=== PATIENT | female | born 1985 | race Caucasian/White ===

== ENCOUNTER 2016-12-06 14:21 | Emergency (ER) | payer OTHER ==
[~2016-12-06 14:21] MED LIST: PRED20TA PO
[2016-12-06 15:10] VITALS: BP 131/83
[2016-12-06] MEDS ORDERED: HYDR-971 PO (15:29)
[2016-12-06] MEDS ORDERED: ACYC800T PO (15:29)
[2016-12-06] MEDS ORDERED: GABA-586 PO (15:29)
--- NOTE | 2016-12-06 15:31 | PHYS DOC ---
Past Medical History Past Medical History: Sciatica Additional Past Medical Histor: SCIATIC NERVE LEFT Past Surgical History: Tubal ligation Alcohol Use: Occasionally Drug Use: None Adult General Chief Complaint Chief Complaint: ITCHING HPI HPI Patient is a 31 year old female presents to the emergency department with a history of rash on the left outer arm. Patient states it has developed on and off for the last year. She states this one developed within the last 2 days. Area appear red with blister type areas. Patient states she had burn itching type pain to the area prior to the rash. Patient has had chicken pox when she was younger. Denies fever, chills, nausea and vomiting. Review of Systems Review of Systems Constitutional: Denies fever or chills [] Eyes: Denies change in visual acuity, redness, or eye pain [] HENT: Denies nasal congestion or sore throat [] Respiratory: Denies cough or shortness of breath [] Cardiovascular: No additional information not addressed in HPI [] GI: Denies abdominal pain, nausea, vomiting, bloody stools or diarrhea [] : Denies dysuria or hematuria [] Musculoskeletal: Denies back pain or joint pain [] Integument: C/o rash to the left outer arm Neurologic: Denies headache, focal weakness or sensory changes [] Endocrine: Denies polyuria or polydipsia [] Allergies Allergies Allergies Coded Allergies Type Severity Reaction Last Updated Verified No Known Drug Allergies 12/16/14 No Physical Exam Physical Exam Constitutional: Well developed, well nourished, no acute distress, non-toxic appearance. [] HENT: Normocephalic, atraumatic, bilateral external ears normal, oropharynx moist, no oral exudates, nose normal. [] Eyes: PERRLA, EOMI, conjunctiva normal, no discharge. [] Neck: Normal range of motion, no tenderness, supple, no stridor. [] Cardiovascular:Heart rate regular rhythm, no murmur [] Lungs & Thorax: Bilateral breath sounds clear to auscultation [] Skin: Warm, dry, no erythema. Patient with red, pustule area noted to the left outer arm no drainage noted. Back: No tenderness Extremities: No tenderness, no cyanosis, no clubbing, ROM intact, no edema. [] Neurologic: Alert and oriented X 3, normal motor function, normal sensory function, no focal deficits noted. [] Psychologic: Affect normal, judgement normal, mood normal. [] Current Patient Data Vital Signs Vital Signs Date Time Temp Pulse Resp B/P Pulse Ox O2 Delivery O2 Flow Rate FiO2 12/06/16 15:10 98.6 92 14 98 Room Air 98.6 EKG EKG [] Radiology/Procedures Radiology/Procedures [] Course & Med Decision Making Course & Med Decision Making Pertinent Labs and Imaging studies reviewed. (See chart for details) Patient will be provided with hydrocodone, gabapentin and acyclovir. Patient states she is concerned as she does not have insurance at this time and is not sure she can afford her medication. Patient was provided with signs and symptoms to return to emergency department. Patient was instructed to keep the area clean dry and cool. Patient will be discharged home in stable condition. Recommended followup with primary care provider in 5-7 days. Patient agrees with discharge instructions, treatment regimen and followup recommendations. Patient was instructed [place] will cause drowsiness do not take if you need to be alert and oriented [] Dragon Disclaimer Dragon Disclaimer This electronic medical record was generated, in whole or in part, using a voice recognition dictation system. Departure Departure Impression: Primary Impression: Shingles outbreak Disposition: HOME, SELF-CARE Condition: STABLE Referrals: NO PCP (PCP) Patient Instructions: Shingles, [id number] Additional Instructions: You have been evaluated for a rash. This rash appears to be shingles Activity as tolerated Medication as prescribed [place] will cause drowsiness do not take if you need to be alert and oriented Benadryl 25 mg every 4-6 hours may also help with irritation and itching. This medication may also cause drowsiness do not take if you need to be alert and oriented. Keep the area clean and dry and cool Avoid being around females Followup with primary care provider in 5-7 days Return to emergency department as needed for signs and symptoms that become worse. Scripts Acyclovir 800 Mg Tablet1 Tab PO 5XDAY #50 TAB Prov:DEENA HDZ [employer] 12/06/16 Gabapentin 300 Mg [id number] Mg PO TID #20 CAP Prov:DEENA HDZ [employer] 12/06/16 Hydrocodone/Apap 5-325 ([place] 5-325 Tablet)1 Each Tablet1 Tab PO PRN Q6HRS PRN PAIN #20 TAB Prov:DEENA HDZ NP 12/06/16 DEENA HDZ NP Dec 06, 2016 15:31
== END 2016-12-06 15:46 | disposition home or self-care (01) ==
LOC: ER 14:21
DX: B02.9 Zoster without complications (principal); Z98.51 Tubal ligation status
CPT/HCPCS: 99283

== ENCOUNTER 2017-05-08 07:17 | Emergency (ER) | payer OTHER ==
[~2017-05-08] VITALS: Ht 162.6 cm; Wt 87.1 kg
[~2017-05-08 07:17] MED LIST changes: +ACYC800T PO; +GABA-586 PO; +HYDR-971 PO
[2017-05-08 07:49] VITALS: BP 119/65
[2017-05-08] MEDS ORDERED: ACYC800T PO (07:58)
[2017-05-08] MEDS ORDERED: HYDR-2758 PO (07:58)
[2017-05-08] MEDS ORDERED: PRED50TA PO (07:58)
--- NOTE | 2017-05-08 07:58 | PHYS DOC ---
Past Medical History Past Medical History: Sciatica Additional Past Medical Histor: SCIATIC NERVE LEFT, history of herpes zoster shingles Past Surgical History: Tubal ligation Smoking: Cigarettes, Greater than 1 pack/day Alcohol Use: Occasionally Drug Use: None Adult General Chief Complaint Chief Complaint: SKIN RASH/ABSCESS [facility] This is a pleasant 31-year-old female with a history of shingles in the past and prior tubal ligation who presents with a rash that she noted on the inside of her bottom yesterday while showering it is tender to palpation although she cannot see it there is concomitant pain within the inguinal crease along the lymph nodes that are now mildly irritated within the right leg. She denies any fever, chills, flulike symptoms. She denies any vaginal discharge or bleeding she denies any joint pain, denies any tick bites denies any other high risk rash findings. She has not taken any recent antibiotics. She is non-IV drug user area Differential diagnosis of rash meningitis, herpes zoster, shingles, gonorrhea, sex or transmitted disease, Rawson spotted fever, ITP TTP, TEN, roger, necrotizing fasciitis, roseola, measles, mumps, and HSP. Review of Systems Review of Systems Constitutional: Denies fever or chills [] Eyes: Denies change in visual acuity, redness, or eye pain [] HENT: Denies nasal congestion or sore throat [] Respiratory: Denies cough or shortness of breath [] Cardiovascular: No additional information not addressed in HPI [] GI: Denies abdominal pain, nausea, vomiting, bloody stools or diarrhea [] : Denies dysuria or hematuria [] Musculoskeletal: Denies back pain or joint pain [] Integument: She complains of only a skin rash Neurologic: Denies headache, focal weakness or sensory changes [] Endocrine: Denies polyuria or polydipsia [] Allergies Allergies Allergies Coded Allergies Type Severity Reaction Last Updated Verified No Known Drug Allergies 12/16/14 No Physical Exam Physical Exam Constitutional: Well developed, well nourished, no acute distress, non-toxic appearance. [] HENT: Normocephalic, atraumatic, bilateral external ears normal, oropharynx moist, no oral exudates, nose normal. [] Cardiovascular:Heart rate regular rhythm, no murmur [] Lungs & Thorax: Bilateral breath sounds clear to auscultation [] Skin: Warm, dry, no erythema, there is a slight vesicular rash almost dermatomal along the inside of the right gluteal buttock. It is only a localized area without cellulitis or abscess. Extremities: No tenderness, no cyanosis, no clubbing, ROM intact, no edema. [] Slight reactive lymphadenopathy noted along the right inguinal crease. Neurologic: Alert and oriented X 3, normal motor function, normal sensory function, no focal deficits noted. [] Psychologic: Affect normal, judgement normal, mood normal. [] EKG EKG [] Radiology/Procedures Radiology/Procedures [] Course & Med Decision Making Course & Med Decision Making Pertinent Labs and Imaging studies reviewed. (See chart for details) Nursing notes and vital signs upon arrival and history of prior zoster. Patient has had a tubal ligation angry placed on appropriate medications to support what I believe to be a herpes zoster exacerbation. She is having a STD-like herpes, HIV, gonorrhea, chlamydia, syphilis, Haemophilus ducri, cellulitis or abscess. She'll be treated with a course of acyclovir, prednisone, and pain medications and follow-up with her PCP. [] Dragon Disclaimer Dragon Disclaimer This electronic medical record was generated, in whole or in part, using a voice recognition dictation system. Departure Departure Impression: Primary Impression: Shingles outbreak Additional Impression: Reactive lymphadenopathy Disposition: 01 HOME, SELF-CARE Condition: STABLE Referrals: NO PCP (PCP) Patient Instructions: Shingles Additional Instructions: Please return here for any new or increasing symptoms, fever greater than 102.2 or if you have any questions or concerns. I would advise a follow-up your primary care doctor in the next 12-24 hours for repeat evaluation. Symptoms have spread. Scripts Prednisone (PREDNISONE) 50 Mg Tablet 1 TAB PO DAILY, #5 TAB Prov: GURWINDER CARRIZALES MD 05/08/17 Acyclovir (ACYCLOVIR) 800 Mg Tablet 1 TAB PO 5XDAY for 10 Days, #50 TAB Prov: GURWINDER CARRIZALES MD 05/08/17 Hydrocodone Bit/Acetaminophen (HYDROCODONE-APAP 5-325 ) 1 Each Tablet 1-2 TAB PO PRN Q6HRS Y for PAIN for 5 Days, #10 TAB 0 Refills Prov: GURWINDER CARRIZALES MD 05/08/17 Problem Qualifiers GURWINDER CARRIZALES MD May 08, 2017 07:58
== END 2017-05-08 08:03 | disposition home or self-care (01) ==
LOC: ER 07:17
DX: B02.9 Zoster without complications (principal); R59.1 Generalized enlarged lymph nodes; F17.210 Nicotine dependence, cigarettes, uncomplicated; Z98.51 Tubal ligation status
CPT/HCPCS: 99283

== ENCOUNTER 2017-07-10 07:43 | Emergency (ER) | payer OTHER ==
[~2017-07-10 07:43] MED LIST changes: +HYDR-2758 PO; +PRED50TA PO
--- NOTE | 2017-07-10 08:23 | PHYS DOC ---
Past Medical History Past Medical History: No Pertinent History Additional Past Medical Histor: SCIATIC NERVE LEFT, history of herpes zoster shingles Past Surgical History: Tubal ligation Alcohol Use: None Drug Use: None Adult General Chief Complaint Chief Complaint: DIZZY/LIGHT HEADED HPI HPI Patient is a 32 year old female who presents with dizziness that started this morning upon awakening. He states that it feels as if the room is spinning when she stands up. She also feels weak. She states that yesterday she had nausea with 2 episodes of vomiting and diarrhea. She states that she has had 1 loose stool this morning. She denies fever or injury. She has history of tubal ligation. Review of Systems Review of Systems Constitutional: Denies fever or chills [] Eyes: Denies change in visual acuity, redness, or eye pain [] HENT: Denies nasal congestion or sore throat [] Respiratory: Denies cough or shortness of breath [] Cardiovascular: No additional information not addressed in HPI [] GI: See HPI : Denies dysuria or hematuria [] Musculoskeletal: Denies back pain or joint pain [] Integument: Denies rash or skin lesions [] Neurologic:See HPI Endocrine: Denies polyuria or polydipsia [] Current Medications Current Medications Current Medications Medications (Trade) Dose Ordered Sig/Abby Start Time Stop Time Status Last Admin Dose Admin Ceftriaxone Sodium 50 ml @ 100 mls/hr 1X ONCE 07/10/17 12:45 07/10/17 13:14 DC 07/10/17 12:57 100 MLS/HR Info (Do NOT chart on this entry -- for MONITORING) 1 each PRN DAILY PRN 07/10/17 13:45 07/10/17 15:15 DC Iohexol (Omnipaque 300 Mg/ml) 75 ml 1X ONCE 07/10/17 13:45 07/10/17 13:46 DC 07/10/17 13:48 75 ML Sodium Chloride 1,000 ml @ 1,000 mls/hr 1X ONCE 07/10/17 10:30 07/10/17 11:29 DC 07/10/17 10:31 1,000 MLS/HR Allergies Allergies Allergies Coded Allergies Type Severity Reaction Last Updated Verified No Known Drug Allergies 12/16/14 No Physical Exam Physical Exam Constitutional: Well developed, well nourished, moderate distress, flushed ill appearance. [] HENT: Normocephalic, atraumatic, bilateral external ears normal, oropharynx dry , no oral exudates, nose normal. [] Eyes: PERRLA, EOMI, conjunctiva normal, no discharge. [] Neck: Normal range of motion, no tenderness, supple, no stridor. [] Cardiovascular: Sinus Bradycardia[] Lungs & Thorax: Bilateral breath sounds clear to auscultation [] Abdomen: Bowel sounds normal, soft, no tenderness, no masses, no pulsatile masses. [] Skin: Warm, dry, no erythema, no rash. [] Back: No tenderness, no CVA tenderness. [] Extremities: No tenderness, no cyanosis, no clubbing, ROM intact, no edema. [] Neurologic: Alert and oriented X 3, normal motor function, normal sensory function, no focal deficits noted. [] Psychologic: Affect normal, judgement normal, mood normal. [] Current Patient Data Vital Signs Vital Signs Date Time Temp Pulse Resp B/P (MAP) Pulse Ox O2 Delivery O2 Flow Rate FiO2 07/10/17 14:00 50 20 126/71 (89) 100 07/10/17 13:37 Room Air 07/10/17 08:08 97.6 97.6 Lab Values Laboratory Tests Test 07/10/17 08:30 07/10/17 11:34 White Blood Count 7.0 x10^3/uL (4.0-11.0) Red Blood Count 4.30 x10^6/uL (3.50-5.40) Hemoglobin 13.5 g/dL (12.0-15.5) Hematocrit 39.3 % (36.0-47.0) Mean Corpuscular Volume 91 fL (79-100) Mean Corpuscular Hemoglobin 31 pg (25-35) Mean Corpuscular Hemoglobin Concent 34 g/dL (31-37) Red Cell Distribution Width 13.5 % (11.5-14.5) Platelet Count 147 x10^3/uL (140-400) Neutrophils (%) (Auto) 58 % (31-73) Lymphocytes (%) (Auto) 34 % (24-48) Monocytes (%) (Auto) 5 % (0-9) Eosinophils (%) (Auto) 3 % (0-3) Basophils (%) (Auto) 0 % (0-3) Neutrophils # (Auto) 4.1 x10^3uL (1.8-7.7) Lymphocytes # (Auto) 2.3 x10^3/uL (1.0-4.8) Monocytes # (Auto) 0.4 x10^3/uL (0.0-1.1) Eosinophils # (Auto) 0.2 x10^3/uL (0.0-0.7) Basophils # (Auto) 0.0 x10^3/uL (0.0-0.2) Sodium Level 142 mmol/L (136-145) Potassium Level 3.7 mmol/L (3.5-5.1) Chloride Level 106 mmol/L (98-107) Carbon Dioxide Level 28 mmol/L (21-32) Anion Gap 8 (6-14) Blood Urea Nitrogen 17 mg/dL (7-20) Creatinine 0.7 mg/dL (0.6-1.0) Estimated GFR (Cockcroft-Gault) 96.4 BUN/Creatinine Ratio 24 (6-20) H Glucose Level 102 mg/dL (70-99) H Calcium Level 8.8 mg/dL (8.5-10.1) Total Bilirubin 0.4 mg/dL (0.2-1.0) Aspartate Amino Transferase (AST) 18 U/L (15-37) Alanine Aminotransferase (ALT) 34 U/L (14-59) Alkaline Phosphatase 99 U/L (46-116) Total Protein 7.4 g/dL (6.4-8.2) Albumin 3.7 g/dL (3.4-5.0) Albumin/Globulin Ratio 1.0 (1.0-1.7) Urine Collection Type Void Urine Color Yellow Urine Clarity Cloudy Urine pH 6.5 Urine Specific [place] 1.020 Urine Protein Negative mg/dL (NEG-TRACE) Urine Glucose (UA) Negative mg/dL (NEG) Urine Ketones (Stick) Negative mg/dL (NEG) Urine Blood Trace (NEG) Urine Nitrite Positive (NEG) Urine Bilirubin Negative (NEG) Urine Urobilinogen Dipstick 1.0 mg/dL (0.2 mg/dL) Urine Leukocyte Esterase Large (NEG) Urine RBC 3-5 /HPF (0-2) Urine WBC >40 /HPF (0-4) Urine Squamous Epithelial Cells Few /LPF Urine Amorphous Sediment Present /HPF Urine Bacteria Moderate /HPF (0-FEW) Laboratory Tests 07/10/17 08:30 Laboratory Tests 07/10/17 08:30 EKG EKG [] Radiology/Procedures Radiology/Procedures []PATIENT: ALVINA DIMAS ACCOUNT: [id number] : 1985 LOCATION: ER AGE: 32 SEX: F EXAM STATUS: REG ER ORD. PHYSICIAN: TIARA SHEARER APRN REASON: dizzy PROCEDURE: CT HEAD WO CONTRAST CT head without contrast 07/10/2017 at 1043 hours Indication: Dizziness Comparison: None available Technique: Multiple axial noncontrast CT images of the head were obtained from the skull base through the vertex. Findings: The ventricles, sulci and basal cisterns are within normal limits. Garcia-white matter differentiation is normal. There is no acute intracranial hemorrhage. There is no mass, mass effect or midline shift. Posterior fossa is within normal limits. Sellar and suprasellar cistern appear normal. Orbits are normal in appearance. Mild mucosal thickening is noted in the left maxillary sinus with air-fluid level. Mastoid air cells are well aerated. Scalp and calvaria are normal. Impression: There is no acute intracranial hemorrhage. Mild mucosal thickening is noted in the left maxillary sinus with air-fluid level. Recommend correlation with signs and symptoms of sinusitis. PQRS Compliance Statement: One or more of the following individualized dose reduction techniques were utilized for this examination: 1. Automated exposure control 2. Adjustment of the mA and/or kV according to patient size 3. Use of iterative reconstruction technique DICTATED and SIGNED BY: JOSE REHMAN MD DATE: 07/10/17 1056 CC: TIARA SHEARER APRN; NO PCP; NON,STAFF ~ PATIENT: ALVINA DIMAS ACCOUNT: [id number] : 1985 LOCATION: ER AGE: 32 SEX: F EXAM STATUS: REG ER ORD. PHYSICIAN: TIARA SHEARER APRN REASON: dizzyness, bradycardia PROCEDURE: CHEST PA & LATERAL Chest radiograph 07/10/2017 11:33 AM Indication: Dizziness, bradycardia Comparison: None available Technique: PA and lateral views of the chest are provided. Findings: Cardiomediastinal silhouette is within normal limits. No pleural effusions, pulmonary vascular congestion or pneumothorax. The lungs are clear. Osseous structures are normal. Impression: No acute cardiopulmonary process. DICTATED and SIGNED BY: JOSE REHMAN MD DATE: 07/10/17 1016 CC: TIARA SHEARER APRN; NO PCP; NON,STAFF ~ Impressions: PATIENT: ALVINA DIMAS ACCOUNT: [id number] : 1985 LOCATION: ER AGE: 32 SEX: F EXAM STATUS: REG ER ORD. PHYSICIAN: TIARA SHEARER APRN REASON: possible pyelonephritis PROCEDURE: CT ABD PELV W/ IV CONTRST ONLY CT abdomen/pelvis with contrast 07/10/2017 at 1348 hours Indication: Pyelonephritis Comparison: None available Technique: Multiple axial CT images of the abdomen and pelvis were obtained after the administration of 75 mL of Omnipaque 300. Coronal and sagittal reformats are provided. Findings: Lung bases are clear. Heart size is within normal limits. There is hypoattenuation of the hepatic parenchyma suggestive of diffuse hepatic steatosis. The spleen, bilateral adrenal glands, pancreas and gallbladder are within normal limits. The abdominal aorta is normal in course and caliber. There are no pathologically enlarged lymph nodes in the abdomen or pelvis. There is no free air or free fluid. The kidneys enhance symmetrically. No suspicious renal masses. There is no hydronephrosis. No calculi are identified in the kidneys, ureters or urinary bladder. Urinary bladder is within normal limits. Metallic clip is identified in the left adnexa. Otherwise uterus and right adnexa are within normal limits. Small and large bowel are normal in caliber. No evidence for bowel obstruction. Normal appendix visualized. No pericolonic inflammatory changes are identified. Metallic density is identified along the ventral portion of the transverse colon. No suspicious osseous lesions are identified. There is mild extra convex curvature of the lumbar spine. Impression: 1. Kidneys enhance symmetrically. No evidence for hydronephrosis or obstructive uropathy. 2. Surgical clip is identified in the left adnexa, likely from tubal ligation. An additional clip may have migrated into the ventral upper abdomen. PQRS Compliance Statement: One or more of the following individualized dose reduction techniques were utilized for this examination: 1. Automated exposure control 2. Adjustment of the mA and/or kV according to patient size 3. Use of iterative reconstruction technique DICTATED and SIGNED BY: JOSE REHMAN MD DATE: 07/10/17 1404 CC: TIARA SHEARER APRN; NO PCP; NON,STAFF ~ Course & Med Decision Making Course & Med Decision Making Pertinent Labs and Imaging studies reviewed. (See chart for details) 1. Urinary Tract Infection 2. Bradycardia 3. Dizziness 4. Weakness After an extensive workup the patient was scheduled to be admitted for further IV antibiotic therapy and further evaluation of her bradycardia and dizziness. The patient was given 3 L of normal saline in the emergency department as well as a gram of Rocephin. Upon discussing her admission the patient became very tearful and refused to be admitted. She did decide to leave AGAINST MEDICAL ADVICE. The patient was given a prescription for Bactrim DS to further treat her large urinary tract infection. The risks of her leaving [facility] were discussed with her and she still decided to go forward with that method of treatment. She has been instructed that she is welcome to return to the emergency department at any time. She is to follow-up with a primary care provider for further evaluation and treatment. Dragon Disclaimer Dragon Disclaimer This electronic medical record was generated, in whole or in part, using a voice recognition dictation system. Departure Departure Referrals: NO PCP (PCP) Scripts Sulfamethoxazole/Trimethoprim (BACTRIM DS TABLET) 1 Each Tablet 1 TAB PO BID, #20 TAB Prov: TIARA SHEARER APRN 07/10/17 TIARA SHEARER APRN Jul 10, 2017 08:23
[2017-07-10 08:43] LABS: BASO % 0 % (0-3); EOS % 3 % (0-3); HEMATOCRIT 39.3 % (36.0-47.0); HEMOGLOBIN 13.5 g/dL (12.0-15.5); LYMPH # 2.3 x10^3/uL (1.0-4.8); LYMPH % 34 % (24-48); MEAN CORPUSCULAR HEMOGLOBIN 31 pg (25-35); MEAN CORPUSCULAR HGB CONC 34 g/dL (31-37); MEAN CORPUSCULAR VOLUME 91 fL (79-100); MONO % 5 % (0-9); NEUT % 58 % (31-73); PLATELET COUNT 147 x10^3/uL (140-400); RED CELL DISTRIBUTION WIDTH 13.5 % (11.5-14.5)
[2017-07-10] MEDS ORDERED: IV NORMAL SALINE 1000ML BAG 1,000 ML IV ONE ×3 (08:45→10:30)
--- NOTE | 2017-07-10 09:10 | EKG ---
[facility] [address] [place] [address] Test Date: 2017-07-10 Test Time: 08:19:04 Pat Name: ALVINA DIMAS Department: Room: Gender: F [employer]: : 1985 Requested By: TIARA SHEARER Order Number: [id number] Reading MD: Feliciano Mccallum Measurements Intervals [place] Rate: 57 P: 39 WV: 174 QRS: 33 QRSD: 78 T: 13 QT: 402 QTc: 394 Interpretive Statements SINUS RHYTHM Electronically Signed On 07-11-2017 13:17:18 CDT by Feliciano Mccallum
[2017-07-10 09:12] LABS: CALCIUM 8.8 mg/dL (8.5-10.1); CREATININE 0.7 mg/dL (0.6-1.0); GFR 96.4; POTASSIUM 3.7 mmol/L (3.5-5.1)
[2017-07-10 09:18] LABS: ALBUMIN 3.7 g/dL (3.4-5.0); TOTAL BILIRUBIN 0.4 mg/dL (0.2-1.0); TOTAL PROTEIN 7.4 g/dL (6.4-8.2)
--- NOTE | 2017-07-10 10:19 | RAD ---
Chest radiograph 07/10/2017 11:33 AM Indication: Dizziness, bradycardia Comparison: None available Technique: PA and lateral views of the chest are provided. Findings: Cardiomediastinal silhouette is within normal limits. No pleural effusions, pulmonary vascular congestion or pneumothorax. The lungs are clear. Osseous structures are normal. Impression: No acute cardiopulmonary process.
--- NOTE | 2017-07-10 11:00 | RAD ---
CT head without contrast 07/10/2017 at 1043 hours Indication: Dizziness Comparison: None available Technique: Multiple axial noncontrast CT images of the head were obtained from the skull base through the vertex. Findings: The ventricles, sulci and basal cisterns are within normal limits. Garcia-white matter differentiation is normal. There is no acute intracranial hemorrhage. There is no mass, mass effect or midline shift. Posterior fossa is within normal limits. Sellar and suprasellar cistern appear normal. Orbits are normal in appearance. Mild mucosal thickening is noted in the left maxillary sinus with air-fluid level. Mastoid air cells are well aerated. Scalp and calvaria are normal. Impression: There is no acute intracranial hemorrhage. Mild mucosal thickening is noted in the left maxillary sinus with air-fluid level. Recommend correlation with signs and symptoms of sinusitis. PQRS Compliance Statement: One or more of the following individualized dose reduction techniques were utilized for this examination: 1. Automated exposure control 2. Adjustment of the mA and/or kV according to patient size 3. Use of iterative reconstruction technique
[2017-07-10 11:44] LABS: BILIRUBIN,URINE NEGATIVE (NEG); GLUCOSE,URINE NEGATIVE (NEG); NITRITE,URINE POSITIVE (NEG); PH,URINE 6.5; PROTEIN,URINE NEGATIVE (NEG-TRACE)
[2017-07-10 11:57] LABS: BACTERIA,URINE MODERATE /HPF (0-FEW); SQUAMOUS EPITHELIAL CELL,UR FEW /LPF; WBC,URINE >40 /HPF (0-4)
[2017-07-10] MEDS ORDERED: IOHEXOL 300 MG/ML 75 ML VIAL IV ONE (13:45)
[2017-07-10] MEDS ORDERED: CONTRAST GIVEN MC PRN (13:45)
[2017-07-10 14:00] VITALS: BP 126/71
--- NOTE | 2017-07-10 14:11 | RAD ---
CT abdomen/pelvis with contrast 07/10/2017 at 1348 hours Indication: Pyelonephritis Comparison: None available Technique: Multiple axial CT images of the abdomen and pelvis were obtained after the administration of 75 mL of Omnipaque 300. Coronal and sagittal reformats are provided. Findings: Lung bases are clear. Heart size is within normal limits. There is hypoattenuation of the hepatic parenchyma suggestive of diffuse hepatic steatosis. The spleen, bilateral adrenal glands, pancreas and gallbladder are within normal limits. The abdominal aorta is normal in course and caliber. There are no pathologically enlarged lymph nodes in the abdomen or pelvis. There is no free air or free fluid. The kidneys enhance symmetrically. No suspicious renal masses. There is no hydronephrosis. No calculi are identified in the kidneys, ureters or urinary bladder. Urinary bladder is within normal limits. Metallic clip is identified in the left adnexa. Otherwise uterus and right adnexa are within normal limits. Small and large bowel are normal in caliber. No evidence for bowel obstruction. Normal appendix visualized. No pericolonic inflammatory changes are identified. Metallic density is identified along the ventral portion of the transverse colon. No suspicious osseous lesions are identified. There is mild extra convex curvature of the lumbar spine. Impression: 1. Kidneys enhance symmetrically. No evidence for hydronephrosis or obstructive uropathy. 2. Surgical clip is identified in the left adnexa, likely from tubal ligation. An additional clip may have migrated into the ventral upper abdomen. PQRS Compliance Statement: One or more of the following individualized dose reduction techniques were utilized for this examination: 1. Automated exposure control 2. Adjustment of the mA and/or kV according to patient size 3. Use of iterative reconstruction technique
[2017-07-10] MEDS ORDERED: SULF1TAB24 PO (14:41)
== END 2017-07-10 14:42 | disposition left against medical advice (07) ==
LOC: ER 07:43 → 4 NORTH 14:10 → UNDOADMIN 14:10 → ER 14:42
DX: R42 Dizziness and giddiness (principal); N39.0 Urinary tract infection, site not specified; R00.1 Bradycardia, unspecified; R53.1 Weakness; Z98.51 Tubal ligation status
CPT/HCPCS: 36415; 70450; 71020; 74177; 80053; 81001; 85025; 87086; 93005; 96361; 96365; 99285; J0690; J7030; Q9967

== ENCOUNTER 2017-09-27 18:48 | Emergency (ER) | payer OTHER ==
[~2017-09-27] VITALS: Ht 162.6 cm; Wt 85.7 kg
[~2017-09-27 18:48] MED LIST changes: +SULF1TAB24 PO
[2017-09-27 18:52] VITALS: BP 117/59
--- NOTE | 2017-09-27 19:06 | PHYS DOC ---
Past Medical History Past Medical History: Other Additional Past Medical Histor: SCIATIC NERVE LEFT, history of herpes zoster shingles Past Surgical History: Tubal ligation Alcohol Use: Rarely Drug Use: None Adult General Chief Complaint Chief Complaint: ABSCESS HPI HPI Patient is a 32 year old female who presents with an abscess on the right buttock for 2 weeks. Patient denies any fever or drainage from the area. Review of Systems Review of Systems Constitutional: Denies fever or chills [] GI: Denies abdominal pain, nausea, vomiting, bloody stools or diarrhea [] : Denies dysuria or hematuria [] Musculoskeletal: Denies back pain or joint pain [] Integument: an abscess on the right buttock Neurologic: Denies headache, focal weakness or sensory changes [] All other systems were reviewed and found to be within normal limits, except as documented in this note. Allergies Allergies Allergies Coded Allergies Type Severity Reaction Last Updated Verified No Known Drug Allergies 12/16/14 No Physical Exam Physical Exam Constitutional: Well developed, well nourished, no acute distress, non-toxic appearance. [] Abdomen: Bowel sounds normal, soft, no tenderness, no masses, no pulsatile masses. [] Skin: Warm, dry, and right low buttock with none indurated area approximately 2 x 1 cm with an open center. The area is erythematous warm and tender to touch. This no fluctuance to the area. Back: No tenderness, no CVA tenderness. [] Extremities: No tenderness, no cyanosis, no clubbing, ROM intact, no edema. [] Neurologic: Alert and oriented X 3, normal motor function, normal sensory function, no focal deficits noted. [] Psychologic: Affect normal, judgement normal, mood normal. [] Current Patient Data Vital Signs Vital Signs Date Time Temp Pulse Resp B/P (MAP) Pulse Ox O2 Delivery O2 Flow Rate FiO2 09/27/17 18:52 97.9 78 18 97 Room Air 97.9 EKG EKG [] Radiology/Procedures Radiology/Procedures [] Course & Med Decision Making Course & Med Decision Making Pertinent Labs and Imaging studies reviewed. (See chart for details) Patient has an abscess with cellulitis to the right buttock that is not ready to be drained. Discharged with Bactrim and Bactroban ointment. Warm compresses recommended to the area. Provided return precautions and discharged in stable condition. Tetanus updated. Dragon Disclaimer Piper Disclaimer This electronic medical record was generated, in whole or in part, using a voice recognition dictation system. Departure Departure Impression: Primary Impression: Abscess of cellulitis of buttock Disposition: 01 HOME, SELF-CARE Condition: STABLE Referrals: UNKNOWN PCP NAME (PCP) follow up with your doctor in one week Patient Instructions: Abscess Additional Instructions: You were seen with an abscess with cellulitis of the right buttock. Keep the area clean and dry. Apply warm compresses to the area twice a day. Use the prescribed medications as ordered. Your tetanus was updated in the ED. Follow- up with your doctor in 1-2 weeks. Come back to the ED at any point symptoms worsen. Scripts Tramadol Hcl (ULTRAM) 50 Mg Tablet 1 TAB PO Q6HRS, #30 TAB Prov: DENG HALE APRN 09/27/17 Sulfamethoxazole/Trimethoprim (BACTRIM 400-80 MG TABLET) 1 Each Tablet 1 TAB PO BID, #20 TAB Prov: DENG HALE APRN 09/27/17 Mupirocin Calcium (BACTROBAN CREAM) 15 Gm Cream..g. 1 SHANTEL TP TID, #30 GM Prov: DENG HALE APRN 09/27/17 DENG HALE APRN Sep 27, 2017 19:06
[2017-09-27] MEDS ORDERED: SULF1TAB23 PO (19:11)
[2017-09-27] MEDS ORDERED: MUPI15CR TP (19:11)
[2017-09-27] MEDS ORDERED: TRAM-48 PO (19:12)
[2017-09-27] MEDS ORDERED: DIPHTH,PERTUSS(ACELL),TET TOX 0.5 ML DISP.SYRIN. VAX IM ONE (19:15)
== END 2017-09-27 19:21 | disposition home or self-care (01) ==
LOC: ER 18:48
DX: L03.317 Cellulitis of buttock (principal)
CPT/HCPCS: 90471; 90715; 99283-25

== ENCOUNTER 2017-11-21 22:14 | Emergency (ER) | payer OTHER ==
[2017-11-21] MEDS: DEXAMETHASONE SOD PHOS 20 MG/5 ML VIAL. IM ×2 (23:40)
[2017-11-21] MEDS: KETOROLAC 60 MG/2 ML INJ. IM ×2 (23:40)
== END 2017-11-21 23:49 | disposition home or self-care (01) ==
LOC: ER 22:14
DX: M54.42 Lumbago with sciatica, left side (principal); Z98.51 Tubal ligation status
CPT/HCPCS: 96372; 99284-25; J1100; J1885

== ENCOUNTER 2017-11-23 07:45 | Emergency (ER) | payer OTHER ==
[2017-11-23] MEDS: HYDROcodone/APAP 5/325MG 1 TAB TABLET PO ×2 (08:12)
== END 2017-11-23 08:15 | disposition home or self-care (01) ==
LOC: ER 07:45
DX: M54.30 Sciatica, unspecified side (principal)
CPT/HCPCS: 99283

== ENCOUNTER 2017-12-15 15:46 | Emergency (ER) | payer OTHER | END 2017-12-15 16:44 | disposition home or self-care (01) | LOC: ER 15:46 | DX: M54.32 Sciatica, left side (principal); Z98.51 Tubal ligation status | CPT/HCPCS: 99281 ==

== ENCOUNTER 2019-02-09 20:17 | Emergency (ER) | payer OTHER ==
[~2019-02-09] VITALS: Ht 162.6 cm; Wt 84.4 kg
[~2019-02-09 20:17] MED LIST changes: +DIAZ5TAB PO; +DICL50TA2 PO; -GABA-586 PO; +GABA300C18 PO; -HYDR-2758 PO; +HYDR-2761 PO; +HYDR-3164 PO; -HYDR-971 PO; +METH4TAB2 PO; +MUPI15CR TP; +SULF1TAB23 PO; +TRAM-48 PO
[2019-02-09] MEDS ORDERED: IV NORMAL SALINE 1000ML BAG 1,000 ML IV ONE (20:30)
[2019-02-09 20:37] LABS: BASO # 0.1 x10^3/uL (0.0-0.2); BASO % 1 % (0-3); EOS # 0.2 x10^3/uL (0.0-0.7); EOS % 2 % (0-3); HEMOGLOBIN 14.7 g/dL (12.0-15.5); LYMPH # 3.9 x10^3/uL (1.0-4.8); LYMPH % 36 % (24-48); MEAN CORPUSCULAR HEMOGLOBIN 32 pg (25-35); MEAN CORPUSCULAR HGB CONC 35 g/dL (31-37); MEAN CORPUSCULAR VOLUME 91 fL (79-100); MONO # 0.4 x10^3/uL (0.0-1.1); MONO % 3 % (0-9); NEUT # 6.1 x10^3uL (1.8-7.7); NEUT % 57 % (31-73); PLATELET COUNT 183 x10^3/uL (140-400); RED BLOOD COUNT 4.59 x10^6/uL (3.50-5.40); RED CELL DISTRIBUTION WIDTH 13.3 % (11.5-14.5); WHITE BLOOD COUNT 10.7 x10^3/uL (4.0-11.0)
[2019-02-09 20:44] LABS: BILIRUBIN,URINE NEGATIVE (NEG); CLARITY,URINE CLOUDY; COLOR,URINE YELLOW; NITRITE,URINE NEGATIVE (NEG); PROTEIN,URINE NEGATIVE (NEG-TRACE)
[2019-02-09 20:51] LABS: BACTERIA,URINE MANY /HPF (0-FEW); RBC,URINE OCC /HPF (0-2); SQUAMOUS EPITHELIAL CELL,UR MANY /LPF; WBC,URINE 20-40 /HPF (0-4)
[2019-02-09 20:52] LABS: CALCIUM 9.7 mg/dL (8.5-10.1); CREATININE 0.7 mg/dL (0.6-1.0); GFR 95.8; POTASSIUM 3.2 mmol/L (3.5-5.1)
[2019-02-09 21:00] LABS: ALBUMIN 4.2 g/dL (3.4-5.0); ALBUMIN/GLOBULIN RATIO 1.1 (1.0-1.7); MAGNESIUM 1.6 mg/dL (1.8-2.4); TOTAL BILIRUBIN 0.3 mg/dL (0.2-1.0); TOTAL PROTEIN 8.1 g/dL (6.4-8.2)
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
--- NOTE | 2019-02-09 21:58 | RAD ---
CT head without contrast: Reason for examination: Left-sided numbness. Comparison is made to previous study dated 07/10/2017. Axial images were obtained through the brain. No contrast was administered. Exposure: One or more of the following individualized dose reduction techniques were utilized for this examination: 1. Automated exposure control 2. Adjustment of the mA and/or kV according to patient size 3. Use of iterative reconstruction technique. Ventricular systems are symmetric and not abnormally dilated. No midline shift is seen. There is no evidence of intracranial hemorrhage, infarct, mass or edema. No abnormalities are seen at the orbits. The paranasal sinuses and mastoid air cells are clear. No acute abnormality seen in the skull. IMPRESSION: No acute intracranial abnormality evident. No interval change seen. Electronically signed by: Theresa Burton MD (02/09/2019 9:54 PM) [facility]
[2019-02-09] MEDS ORDERED: ASPIRIN 325 MG TABLET PO ONE (22:45)
[2019-02-09] MEDS ORDERED: POTASSIUM CHLORIDE 20 MEQ TABLET.ER. PO ONE (22:45)
[2019-02-09] MEDS ORDERED: cefTRIAXone IV Push 1 GM VIAL. IVP ONE (22:45)
[2019-02-09] MEDS ORDERED: MAGNESIUM SULFATE 2GM 50 ML IV ONE (22:45)
[2019-02-09 23:17] VITALS: BP 132/60
[2019-02-09] MEDS ORDERED: CEPH-264 PO (23:18)
[2019-02-09] MEDS ORDERED: MAGNESIUM OXIDE 400 MG TABLET ONE (23:30)
[2019-02-10] MEDS ORDERED: MAGNESIUM OXIDE 400 MG TABLET PO SCH (09:00)
--- NOTE | 2019-02-10 14:54 | EKG ---
[facility] [address] [place] [address] Test Date: 2019-02-09 Test Time: 20:25:20 Pat Name: ALVINA DIMAS Department: Room: Gender: F [employer]: : 1985 Requested By: ISAAC FOFANA Order Number: [id number] Reading MD: Feliciano Mccallum MD Measurements Intervals [place] Rate: 97 P: OK: QRS: 26 QRSD: 80 T: 8 QT: 334 QTc: 428 Interpretive Statements SR NON-SPECIFIC ST/T CHANGES Electronically Signed On 02-13-2019 12:15:12 CDT by Feliciano Mccallum MD
== END 2019-02-09 23:27 | disposition left against medical advice (07) ==
LOC: ER 20:17
DX: N39.0 Urinary tract infection, site not specified (principal); R20.0 Anesthesia of skin; E87.6 Hypokalemia; E83.42 Hypomagnesemia; R07.89 Other chest pain; R51 Headache
CPT/HCPCS: 36415; 70450; 80053; 81001; 81025; 82553; 83690; 83735; 85025; 87086; 93005; 96374; 99285; J0696; J7030; 87186; J3475

== ENCOUNTER 2019-07-08 19:17 | Emergency (ER) | payer OTHER ==
[~2019-07-08] VITALS: Ht 162.6 cm; Wt 84.4 kg
[~2019-07-08 19:17] MED LIST changes: +CEPH-264 PO
[2019-07-08] MEDS ORDERED: MORPHINE SULFATE 4 MG/ML VIAL. IV/SQ PRN (19:45)
[2019-07-08] MEDS ORDERED: NITROGLYCERIN SUBLINGUAL 0.4 MG BOTTLE OF 25. SL PRN (19:45)
[2019-07-08 19:53] LABS: BASO # 0.1 x10^3/uL (0.0-0.2); BASO % 1 % (0-3); EOS % 1 % (0-3); HEMATOCRIT 41.6 % (36.0-47.0); HEMOGLOBIN 14.7 g/dL (12.0-15.5); LYMPH # 1.5 x10^3/uL (1.0-4.8); LYMPH % 19 % (24-48); MEAN CORPUSCULAR HEMOGLOBIN 33 pg (25-35); MEAN CORPUSCULAR HGB CONC 35 g/dL (31-37); MEAN CORPUSCULAR VOLUME 92 fL (79-100); MONO # 0.3 x10^3/uL (0.0-1.1); MONO % 4 % (0-9); NEUT # 6.2 x10^3/uL (1.8-7.7); NEUT % 76 % (31-73); PLATELET COUNT 169 x10^3/uL (140-400); RED BLOOD COUNT 4.54 x10^6/uL (3.50-5.40); RED CELL DISTRIBUTION WIDTH 13.8 % (11.5-14.5); WHITE BLOOD COUNT 8.2 x10^3/uL (4.0-11.0)
[2019-07-08 19:56] LABS: BILIRUBIN,URINE NEGATIVE (NEG); CLARITY,URINE CLEAR; COLOR,URINE YELLOW; NITRITE,URINE POSITIVE (NEG); PH,URINE 7.5; PROTEIN,URINE NEGATIVE (NEG-TRACE)
[2019-07-08] MEDS ORDERED: ASPIRIN 325 MG TABLET PO ONE (20:00)
[2019-07-08] MEDS ORDERED: FAMOTIDINE 20 MG/2 ML VIAL IVP ONE (20:00)
[2019-07-08] MEDS ORDERED: IV NORMAL SALINE 1000ML BAG 1,000 ML IV ONE (20:00)
[2019-07-08] MEDS ORDERED: ONDANSETRON PF 4 MG/2 ML VIAL. IV ONE (20:00)
[2019-07-08] MEDS ORDERED: DICYCLOMINE HCL 10 MG CAPSULE PO ONE (20:00)
[2019-07-08 20:02] LABS: BACTERIA,URINE MANY /HPF (0-FEW); SQUAMOUS EPITHELIAL CELL,UR FEW /LPF
[2019-07-08 20:02] LABS: CALCIUM 9.6 mg/dL (8.5-10.1); CREATININE 0.7 mg/dL (0.6-1.0); GFR 95.2; POTASSIUM 3.7 mmol/L (3.5-5.1)
[2019-07-08 20:03] LABS: BARBITURATES NEG (NEG); BENZODIAZEPINES NEG (NEG); CANNABINOIDS NEG (NEG); COCAINE NEG (NEG); METHADONE NEG (NEG); OPIATES NEG (NEG); PHENCYCLIDINE NEG (NEG); RBC,URINE 0 /HPF (0-2)
[2019-07-08 20:04] LABS: AMPHETAMINE/METHAMPHETAMINE NEG (NEG); TRICHOMONAS,URINE PRESENT
[2019-07-08 20:08] LABS: ALBUMIN/GLOBULIN RATIO 1.1 (1.0-1.7); TOTAL BILIRUBIN 0.5 mg/dL (0.2-1.0); TOTAL PROTEIN 7.8 g/dL (6.4-8.2)
--- NOTE | 2019-07-08 20:08 | PHYS DOC ---
Past Medical History Past Medical History: Other Additional Past Medical Histor: SCIATIC NERVE LEFT, SHINGLES (DENG HALE APRN) Past Surgical History: Tubal ligation (DENG HALE APRN) Alcohol Use: Rarely Drug Use: None (DENG HALE APRN) Adult General Chief Complaint Chief Complaint: NAUSEA/VOMITING/DIARRHA HPI HPI Patient is a 34 year old female who presents to the ED today complaining of 7 out of 10 left-sided abdominal pain with nausea vomiting and slight diarrhea that began today. Patient's also complaining of a 7 out of 10 left-sided headache. Denies this being the worst headache in her life. Denies any exacerbating or relieving factors to her symptoms. (DENG HALE APRN) Review of Systems Review of Systems Constitutional: Denies fever or chills [] Eyes: Denies change in visual acuity, redness, or eye pain [] HENT: Denies nasal congestion or sore throat [] Respiratory: Denies cough or shortness of breath [] Cardiovascular: No additional information not addressed in HPI [] GI: Reports left-sided abdominal pain with nausea, vomiting, diarrhea : Denies dysuria or hematuria [] Musculoskeletal: Denies back pain or joint pain [] Integument: Denies rash or skin lesions [] Neurologic: Reports headache, denies focal weakness or sensory changes [] All other systems were reviewed and found to be within normal limits, except as documented in this note. (DENG HALE APRN) Current Medications Current Medications Current Medications Medications (Trade) Dose Ordered Sig/Abby Start Time Stop Time Status Last Admin Dose Admin Aspirin (Randolph Aspirin) 325 mg 1X ONCE 07/08/19 20:00 07/08/19 20:01 DC Azithromycin (Zithromax) 1,000 mg 1X ONCE 07/08/19 20:30 07/08/19 20:31 DC 07/08/19 20:49 1,000 MG Ceftriaxone Sodium (Rocephin) 1 gm 1X ONCE 07/08/19 20:30 07/08/19 20:31 DC 07/08/19 20:49 1 GM Dexamethasone Sodium Phosphate (Decadron) 10 mg 1X ONCE 07/08/19 20:30 07/08/19 20:31 DC 07/08/19 20:49 10 MG Dicyclomine HCl (Bentyl) 20 mg 1X ONCE 07/08/19 20:00 07/08/19 20:01 DC 07/08/19 20:01 20 MG Famotidine (Pepcid Vial) 20 mg 1X ONCE 07/08/19 20:00 07/08/19 20:01 DC 07/08/19 20:01 20 MG Ketorolac Tromethamine (Toradol 30mg Vial) 30 mg 1X ONCE 07/08/19 20:30 07/08/19 20:31 DC 07/08/19 20:49 30 MG Metronidazole (Flagyl) 2,000 mg 1X ONCE 07/08/19 20:30 07/08/19 20:31 DC 07/08/19 20:59 2,000 MG Morphine Sulfate (Morphine Sulfate) 4 mg PRN Q15MIN PRN 07/08/19 19:45 07/08/19 21:10 DC Nitroglycerin (Nitrostat) 0.4 mg PRN Q5MIN PRN 07/08/19 19:45 07/08/19 21:10 DC Ondansetron HCl (Zofran) 4 mg 1X ONCE 07/08/19 20:00 07/08/19 20:01 DC 07/08/19 20:01 4 MG Sodium Chloride 1,000 ml @ 1,000 mls/hr 1X ONCE 07/08/19 20:00 07/08/19 20:59 DC 07/08/19 20:01 1,000 MLS/HR (ISAAC FOFANA DO) Allergies Allergies Allergies Coded Allergies Type Severity Reaction Last Updated Verified No Known Drug Allergies 11/23/17 No (ISAAC FOFANA DO) Physical Exam Physical Exam Constitutional: Well developed, well nourished, no acute distress, non-toxic appearance. [] HENT: Normocephalic, atraumatic, bilateral external ears normal, oropharynx moist, no oral exudates, nose normal. [] Eyes: PERRLA, EOMI, conjunctiva normal, no discharge. [] Neck: Normal range of motion, no tenderness, supple, no stridor. [] Cardiovascular:Heart rate regular rhythm, no murmur [] Lungs & Thorax: Bilateral breath sounds clear to auscultation [] Abdomen: Bowel sounds normal, soft, no tenderness, no masses, no pulsatile masses. [] Skin: Warm, dry, no erythema, no rash. [] Back: No tenderness, no CVA tenderness. [] Extremities: No tenderness, no cyanosis, no clubbing, ROM intact, no edema. [] Neurologic: Alert and oriented X 3, normal motor function, normal sensory function, no focal deficits noted. Cranial nerves II through XII intact Psychologic: Affect normal, judgement normal, mood normal. [] (DENG HALE LOGISTICS COORDINATOR) Current Patient Data Vital Signs Vital Signs Date Time Temp Pulse Resp B/P (MAP) Pulse Ox O2 Delivery O2 Flow Rate FiO2 07/08/19 21:03 94 20 127/75 (92) 100 Room Air 07/08/19 19:27 97.8 97.8 (FOFANAISAAC WALSH DO) Lab Values Laboratory Tests Test 07/08/19 19:27 07/08/19 19:45 Urine Collection Type Unknown Urine Color Yellow Urine Clarity Clear Urine pH 7.5 Urine Specific [place] 1.020 Urine Protein Negative mg/dL (NEG-TRACE) Urine Glucose (UA) Negative mg/dL (NEG) Urine Ketones (Stick) 15 mg/dL (NEG) Urine Blood Negative (NEG) Urine Nitrite Positive (NEG) Urine Bilirubin Negative (NEG) Urine Urobilinogen Dipstick 1.0 mg/dL (0.2 mg/dL) Urine Leukocyte Esterase Small (NEG) Urine RBC 0 /HPF (0-2) Urine WBC 5-10 /HPF (0-4) Urine Squamous Epithelial Cells Few /LPF Urine Bacteria Many /HPF (0-FEW) Urine Mucus Mod /LPF Urine Trichomonas Present Urine Opiates Screen Neg (NEG) Urine Methadone Screen Neg (NEG) Urine Barbiturates Neg (NEG) Urine Phencyclidine Screen Neg (NEG) Urine Amphetamine/Methamphetamine Neg (NEG) Urine Benzodiazepines Screen Neg (NEG) Urine Cocaine Screen Neg (NEG) Urine Cannabinoids Screen Neg (NEG) Urine Ethyl Alcohol Neg (NEG) White Blood Count 8.2 x10^3/uL (4.0-11.0) Red Blood Count 4.54 x10^6/uL (3.50-5.40) Hemoglobin 14.7 g/dL (12.0-15.5) Hematocrit 41.6 % (36.0-47.0) Mean Corpuscular Volume 92 fL (79-100) Mean Corpuscular Hemoglobin 33 pg (25-35) Mean Corpuscular Hemoglobin Concent 35 g/dL (31-37) Red Cell Distribution Width 13.8 % (11.5-14.5) Platelet Count 169 x10^3/uL (140-400) Neutrophils (%) (Auto) 76 % (31-73) H Lymphocytes (%) (Auto) 19 % (24-48) L Monocytes (%) (Auto) 4 % (0-9) Eosinophils (%) (Auto) 1 % (0-3) Basophils (%) (Auto) 1 % (0-3) Neutrophils # (Auto) 6.2 x10^3/uL (1.8-7.7) Lymphocytes # (Auto) 1.5 x10^3/uL (1.0-4.8) Monocytes # (Auto) 0.3 x10^3/uL (0.0-1.1) Eosinophils # (Auto) 0.0 x10^3/uL (0.0-0.7) Basophils # (Auto) 0.1 x10^3/uL (0.0-0.2) Sodium Level 142 mmol/L (136-145) Potassium Level 3.7 mmol/L (3.5-5.1) Chloride Level 104 mmol/L (98-107) Carbon Dioxide Level 24 mmol/L (21-32) Anion Gap 14 (6-14) Blood Urea Nitrogen 12 mg/dL (7-20) Creatinine 0.7 mg/dL (0.6-1.0) Estimated GFR (Cockcroft-Gault) 95.2 BUN/Creatinine Ratio 17 (6-20) Glucose Level 118 mg/dL (70-99) H Calcium Level 9.6 mg/dL (8.5-10.1) Total Bilirubin 0.5 mg/dL (0.2-1.0) Aspartate Amino Transferase (AST) 17 U/L (15-37) Alanine Aminotransferase (ALT) 31 U/L (14-59) Alkaline Phosphatase 93 U/L (46-116) Total Protein 7.8 g/dL (6.4-8.2) Albumin 4.0 g/dL (3.4-5.0) Albumin/Globulin Ratio 1.1 (1.0-1.7) Lipase 75 U/L (73-393) Laboratory Tests 07/08/19 19:45 Laboratory Tests 07/08/19 19:45 (ISAAC FOFANA DO) EKG EKG [] (DENG HALE APRN) Radiology/Procedures Radiology/Procedures [] (DENG HALE APRN) Course & Med Decision Making Course & Med Decision Making Pertinent Labs and Imaging studies reviewed. (See chart for details) This is a 34-year-old female patient presenting to the ED today with left-sided abdominal pain, nausea, vomiting, diarrhea, symptoms began this morning. Also complaining of a headache. CBC within normal WBC, normal CMP. Urine analysis is noted for UTI and Trichomonas. Patient was treated in the emergency room. Discharged with cephalexin. Follow-up with PCP in 1-2 weeks. OTC pain relievers. (DENG HALE APRN) Dragon Disclaimer Dragon Disclaimer This electronic medical record was generated, in whole or in part, using a voice recognition dictation system. (DENG HALE APRN) Departure Departure Impression: Primary Impression: Nausea and vomiting Additional Impressions: UTI (lower urinary tract infection) Trichomonas vaginitis Diarrhea Disposition: HOME, SELF-CARE Condition: STABLE Referrals: NO PCP (PCP) follow up with your doctor next week Patient Instructions: Nausea and Vomiting, [id number], Trichomoniasis-Brief, Urinary Tract Infection Additional Instructions: You were see in the emergency room and noted to have urinary tract infection, and Trichomonas. Take the prescribed medications as ordered. Push fluids. You can take [id number] Tylenol/Motrin for pain or fever. Please contact all your sex partners let them know you were positive for an STD, and ask them to seek treatment. Do not have sex for one week. Use protection at all times Scripts Cephalexin (CEPHALEXIN) 500 Mg Tablet 1 TAB PO BID, #14 TAB Prov: DENG HALE APRN 07/08/19 Ondansetron Hcl (ZOFRAN) 4 Mg Tablet 1 TAB PO Q6HRS, #20 TAB Prov: DENG HALE APRN 07/08/19 Attending Signature Attending Signature I have reviewed the PA/[employer]ATION[employer]REMAN's note and plan of care. I was available for consultation as needed during the patient's visit in the emergency department. I agree with the clinical impression, plan, and disposition. (FOFANA,ISAAC R DO) Problem Qualifiers Primary Impression: Nausea and vomiting Vomiting type: unspecified Vomiting Intractability: unspecified Qualified Codes: R11.2 - Nausea with vomiting, unspecified Additional Impressions: Diarrhea Diarrhea type: unspecified type Qualified Codes: R19.7 - Diarrhea, unspecified MUTMARCIADENG APRN Jul 08, 2019 20:08 ISAAC FOFANA DO Jul 08, 2019 22:26
[2019-07-08] MEDS ORDERED: ONDA4TAB7 PO (20:20)
[2019-07-08] MEDS ORDERED: CEPH500T PO (20:20)
[2019-07-08] MEDS ORDERED: metroNIDAZOLE 500 MG TABLET PO ONE (20:30)
[2019-07-08] MEDS ORDERED: cefTRIAXone IV Push 1 GM VIAL. IVP ONE (20:30)
[2019-07-08] MEDS ORDERED: KETOROLAC 30 MG/ML VIAL. IV ONE (20:30)
[2019-07-08] MEDS ORDERED: DEXAMETHASONE SOD PHOS 20 MG/5 ML VIAL. IV ONE (20:30)
[2019-07-08] MEDS ORDERED: AZITHROMYCIN 250 MG TABLET. PO ONE (20:30)
[2019-07-08 21:03] VITALS: BP 127/75
== END 2019-07-08 21:07 | disposition home or self-care (01) ==
LOC: ER 19:17
DX: N39.0 Urinary tract infection, site not specified (principal); A59.01 Trichomonal vulvovaginitis; R11.2 Nausea with vomiting, unspecified; R19.7 Diarrhea, unspecified; Z98.51 Tubal ligation status
CPT/HCPCS: 36415; 80053; 80307; 81001; 83690; 85025; 96361; 96374; 96375; 99284; J0696; J1100; J1885; J2405; J3490; J7030; Q0144

== ENCOUNTER 2020-06-16 01:16 | Emergency (ER) | payer OTHER ==
[~2020-06-16] VITALS: Ht 162.6 cm; Wt 85.0 kg
[~2020-06-16 01:16] MED LIST changes: +CEPH500T PO; +ONDA4TAB7 PO
[2020-06-16 02:45] LABS: BILIRUBIN,URINE NEGATIVE (NEG); CLARITY,URINE CLEAR; COLOR,URINE YELLOW; NITRITE,URINE NEGATIVE (NEG); PROTEIN,URINE NEGATIVE (NEG-TRACE)
[2020-06-16 02:53] LABS: SQUAMOUS EPITHELIAL CELL,UR MOD /LPF
[2020-06-16 02:55] LABS: BACTERIA,URINE 0 /HPF (0-FEW); WBC,URINE RARE /HPF (0-4)
[2020-06-16] MEDS ORDERED: KETOROLAC 30 MG/ML VIAL. IVP ONE (03:15)
[2020-06-16 03:43] LABS: BASO # 0.1 x10^3/uL (0.0-0.2); BASO % 1 % (0-3); EOS # 0.1 x10^3/uL (0.0-0.7); EOS % 1 % (0-3); HEMATOCRIT 38.2 % (36.0-47.0); HEMOGLOBIN 13.3 g/dL (12.0-15.5); LYMPH # 3.1 x10^3/uL (1.0-4.8); LYMPH % 34 % (24-48); MEAN CORPUSCULAR HEMOGLOBIN 33 pg (25-35); MEAN CORPUSCULAR HGB CONC 35 g/dL (31-37); MEAN CORPUSCULAR VOLUME 94 fL (79-100); MONO # 0.5 x10^3/uL (0.0-1.1); MONO % 6 % (0-9); NEUT # 5.5 x10^3/uL (1.8-7.7); NEUT % 58 % (31-73); PLATELET COUNT 183 x10^3/uL (140-400); RED BLOOD COUNT 4.09 x10^6/uL (3.50-5.40); RED CELL DISTRIBUTION WIDTH 13.4 % (11.5-14.5); WHITE BLOOD COUNT 9.4 x10^3/uL (4.0-11.0)
[2020-06-16 03:50] LABS: CALCIUM 8.8 mg/dL (8.5-10.1); CREATININE 0.7 mg/dL (0.6-1.0); GFR 95.2; POTASSIUM 3.7 mmol/L (3.5-5.1)
[2020-06-16 04:22] VITALS: BP 113/75
--- NOTE | 2020-06-16 04:35 | RAD ---
Study: CT abdomen/pelvis without intravenous contrast Indication: Flank pain. Comparison: 07/10/2017 Technique: Helical CT imaging performed of the abdomen and pelvis without the use of intravenous contrast. Sagittal and coronal reformats were obtained. One or more of the following individualized dose reduction techniques were utilized for this examination: 1. Automated exposure control 2. Adjustment of the mA and/or kV according to patient size 3. Use of iterative reconstruction technique. Findings: Inherently limited evaluation without intravenous contrast. Partially imaged foci of mineralization appear to represent LAD calcific coronary artery disease. The visualized lower lungs are within normal limits. No focal hepatic parenchymal abnormality. Hepatic steatosis. The spleen is at the upper limits of normal for size. Unremarkable gallbladder, pancreas and adrenal glands. No renal parenchymal abnormality is appreciated noting the absence of contrast. No hydroureteronephrosis. The distal third of both ureters are poorly visualized due to closely apposed pelvic structures but no ureteral stone is apparent. There are a few pelvic phleboliths. Unremarkable urinary bladder. Tampon noted. No concerning adnexal mass. Tubal ligation clips seen at the left adnexa. A metallic density at the central upper abdomen was present previously and appears to represent a migrated tubal ligation clip. No acute abnormality of the colon. Normal appendix. Nonobstructed small bowel. Unremarkable stomach. Small amount of aortobiiliac calcific atherosclerosis. Nonaneurysmal aorta. No lymphadenopathy. No free fluid or pneumoperitoneum. Redemonstration of chronic ossific foci adjacent to both hips. Lumbar dextrocurvature. Prominent peripherally mineralized disc extrusion lateralized to the left at L5-S1 is again seen. This presumably results in severe left lateral recess stenosis as well as a degree of central canal stenosis. This has apparently increased in size since 2017. There may be progression of central canal narrowing at L4-L5 as well. Impression: 1. No acute abnormality of either kidney or collecting system to account for the patient's reported flank pain. 2. Hepatic steatosis and mild splenic enlargement also present in 2017. 3. Prominent peripherally mineralized disc extrusion lateralized to the left at L5-S1 presumably resulting in severe left lateral recess stenosis. This does appear to have slightly increased in size since 2017. Possible increase in central canal narrowing at L4-L5 as well. If warranted clinically, nonemergent/outpatient MRI could be performed to better characterize. 4. Suspected LAD calcific atherosclerosis which would be advanced for patient age. Electronically signed by: NICHOLE ZIMMER MD (06/16/2020 4:32 AM) [id number]
--- NOTE | 2020-06-16 04:43 | PHYS DOC ---
Past Medical History Past Medical History: Other Additional Past Medical Histor: SCIATIC NERVE LEFT, history of shingles Past Surgical History: Tubal ligation Smoking Status: Current Every Day Smoker Alcohol Use: Rarely Drug Use: None General Adult EDM: Chief Complaint: ABDOMINAL PAIN HPI: HPI: Patient is a 34 year old [f__sex] who presents with [] Review of Systems: Review of Systems: Constitutional: Denies fever or chills. [] Eyes: Denies change in visual acuity. [] HENT: Denies nasal congestion or sore throat. [] Respiratory: Denies cough or shortness of breath. [] Cardiovascular: Denies chest pain or edema. [] GI: Denies abdominal pain, nausea, vomiting, bloody stools or diarrhea. [] : Denies dysuria. [] Musculoskeletal: Denies back pain or joint pain. [] Integument: Denies rash. [] Neurologic: Denies headache, focal weakness or sensory changes. [] Endocrine: Denies polyuria or polydipsia. [] Lymphatic: Denies swollen glands. [] Psychiatric: Denies depression or anxiety. [] Heart Score: Risk Factors: Risk Factors: DM, Current or recent (<one month) smoker, HTN, HLP, family history of CAD, obesity. Risk Scores: Score 0 - 3: 2.5% MACE over next 6 weeks - Discharge Home Score 4 - 6: 20.3% MACE over next 6 weeks - Admit for Clinical Observation Score 7 - 10: 72.7% MACE over next 6 weeks - Early Invasive Strategies Current Medications: Current Medications Medications (Trade) Dose Ordered Sig/[facility] Start Time Stop Time Status Last Admin Dose Admin Ketorolac Tromethamine (Toradol 30mg Vial) 30 mg 1X ONCE 06/16/20 03:15 06/16/20 03:16 DC 06/16/20 04:00 30 MG Allergies: Allergies: Allergies Coded Allergies Type Severity Reaction Last Updated Verified No Known Drug Allergies 11/23/17 No Physical Exam: PE: Constitutional: Well developed, well nourished, no acute distress, non-toxic appearance. [] HENT: Normocephalic, atraumatic, bilateral external ears normal, oropharynx moist, no oral exudates, nose normal. [] Eyes: PERRLA, EOMI, conjunctiva normal, no discharge. [] Neck: Normal range of motion, no tenderness, supple, no stridor. [] Cardiovascular:Heart rate regular rhythm, no murmur [] Lungs & Thorax: Bilateral breath sounds clear to auscultation [] Abdomen: Bowel sounds normal, soft, no tenderness, no masses, no pulsatile masses. [] Skin: Warm, dry, no erythema, no rash. [] Back: No tenderness, no CVA tenderness. [] Extremities: No tenderness, no cyanosis, no clubbing, ROM intact, no edema. [] Neurologic: Alert and oriented X 3, normal motor function, normal sensory function, no focal deficits noted. [] Psychologic: Affect normal, judgement normal, mood normal. [] Current Patient Data: Labs: Laboratory Tests Test 06/16/20 02:20 06/16/20 02:44 06/16/20 03:35 Urine Collection Type Unknown Urine Color Yellow Urine Clarity Clear Urine pH 6.0 (<5.0-8.0) Urine Specific [place] 1.020 (1.000-1.030) Urine Protein Negative mg/dL (NEG-TRACE) Urine Glucose (UA) Negative mg/dL (NEG) Urine Ketones (Stick) Negative mg/dL (NEG) Urine Blood Moderate (NEG) Urine Nitrite Negative (NEG) Urine Bilirubin Negative (NEG) Urine Urobilinogen Dipstick 1.0 mg/dL (0.2 mg/dL) Urine Leukocyte Esterase Negative (NEG) Urine RBC 3-5 /HPF (0-2) Urine WBC Rare /HPF (0-4) Urine Squamous Epithelial Cells Mod /LPF Urine Bacteria 0 /HPF (0-FEW) Urine Mucus Mod /LPF POC Urine HCG, Qualitative Hcg negative (Negative) White Blood Count 9.4 x10^3/uL (4.0-11.0) Red Blood Count 4.09 x10^6/uL (3.50-5.40) Hemoglobin 13.3 g/dL (12.0-15.5) Hematocrit 38.2 % (36.0-47.0) Mean Corpuscular Volume 94 fL (79-100) Mean Corpuscular Hemoglobin 33 pg (25-35) Mean Corpuscular Hemoglobin Concent 35 g/dL (31-37) Red Cell Distribution Width 13.4 % (11.5-14.5) Platelet Count 183 x10^3/uL (140-400) Neutrophils (%) (Auto) 58 % (31-73) Lymphocytes (%) (Auto) 34 % (24-48) Monocytes (%) (Auto) 6 % (0-9) Eosinophils (%) (Auto) 1 % (0-3) Basophils (%) (Auto) 1 % (0-3) Neutrophils # (Auto) 5.5 x10^3/uL (1.8-7.7) Lymphocytes # (Auto) 3.1 x10^3/uL (1.0-4.8) Monocytes # (Auto) 0.5 x10^3/uL (0.0-1.1) Eosinophils # (Auto) 0.1 x10^3/uL (0.0-0.7) Basophils # (Auto) 0.1 x10^3/uL (0.0-0.2) Sodium Level 139 mmol/L (136-145) Potassium Level 3.7 mmol/L (3.5-5.1) Chloride Level 104 mmol/L (98-107) Carbon Dioxide Level 26 mmol/L (21-32) Anion Gap 9 (6-14) Blood Urea Nitrogen 11 mg/dL (7-20) Creatinine 0.7 mg/dL (0.6-1.0) Estimated GFR (Cockcroft-Gault) 95.2 Glucose Level 108 mg/dL (70-99) H Calcium Level 8.8 mg/dL (8.5-10.1) Laboratory Tests 06/16/20 03:35 Laboratory Tests 06/16/20 03:35 Vital Signs: Vital Signs Date Time Temp Pulse Resp B/P (MAP) Pulse Ox O2 Delivery O2 Flow Rate FiO2 06/16/20 02:22 98.1 78 16 114/56 (75) 98 Room Air 98.1 EKG: EKG: [] Radiology/Procedures: Radiology/Procedures: [] Course & Med Decision Making: Course & Med Decision Making Pertinent Labs and Imaging studies reviewed. (See chart for details) [] Dragon Disclaimer: Dragon Disclaimer: This electronic medical record was generated, in whole or in part, using a voice recognition dictation system. Departure Departure Impression: Primary Impression: Dysfunctional uterine bleeding Disposition: HOME, SELF-CARE Condition: IMPROVED Referrals: DARYL CLARKE (PCP) Patient Instructions: Uterine Bleeding, Dysfunctional Justicifation of Admission Dx: Justifications for Admission: Justification of Admission Dx: N/A YUMIKO ESTRADA MD Jun 16, 2020 04:43
== END 2020-06-16 05:06 | disposition home or self-care (01) ==
LOC: ER 01:16
DX: N93.8 Other specified abnormal uterine and vaginal bleeding (principal); F17.200 Nicotine dependence, unspecified, uncomplicated; Z98.51 Tubal ligation status
CPT/HCPCS: 36415; 74176; 80048; 81001; 81025; 85025; 96374; 99284; J1885; 96372

== ENCOUNTER 2021-05-21 13:56 | Emergency (ER) | payer OTHER ==
[~2021-05-21] VITALS: Ht 162.6 cm; Wt 73.8 kg
[~2021-05-21 13:56] MED LIST changes: -ACYC800T PO; +ACYC800T88 PO; +ALPR0.25 PO; +DOCU-109 PO; +FLUO20CA20 PO; +IBUP-1060 PO
[2021-05-21 14:30] VITALS: BP 96/51
[2021-05-21 14:53] LABS: BILIRUBIN,URINE NEGATIVE (NEG); CLARITY,URINE CLEAR; COLOR,URINE YELLOW; NITRITE,URINE NEGATIVE (NEG); PROTEIN,URINE NEGATIVE (NEG-TRACE); UROBILINOGEN,URINE 0.2 mg/dL (0.2 mg/dL)
[2021-05-21 15:02] LABS: AMORPHOUS SEDIMENT,UR PRESENT /HPF; BACTERIA,URINE 0 /HPF (0-FEW); RBC,URINE 0 /HPF (0-2); WBC,URINE 0 /HPF (0-4)
== END 2021-05-21 19:24 | disposition left against medical advice (07) ==
LOC: ER 13:56
DX: R51.9 Headache, unspecified (principal); M54.5 Low back pain; R11.2 Nausea with vomiting, unspecified; R19.7 Diarrhea, unspecified; Z53.21 Procedure and treatment not carried out due to patient leaving prior to being seen by health care provider
CPT/HCPCS: 81001

== ENCOUNTER 2021-11-02 15:18 | Emergency (ER) | payer OTHER ==
[~2021-11-02] VITALS: Ht 162.6 cm; Wt 69.5 kg
[~2021-11-02 15:18] MED LIST changes: -FLUO20CA20 PO; +FLUO20CA22 PO
[2021-11-02 15:43] VITALS: BP 109/40
[2021-11-02 15:57] LABS: BILIRUBIN,URINE NEGATIVE (NEG); CLARITY,URINE CLEAR; COLOR,URINE YELLOW; NITRITE,URINE NEGATIVE (NEG); PROTEIN,URINE NEGATIVE (NEG-TRACE)
[2021-11-02 16:03] LABS: BACTERIA,URINE 0 /HPF (0-FEW); RBC,URINE 0 /HPF (0-2)
[2021-11-02 16:06] LABS: U PREG PATIENT NEGATIVE (NEG)
== END 2021-11-02 18:02 | disposition left against medical advice (07) ==
LOC: ER 15:18
DX: M54.50 Low back pain, unspecified (principal); R10.2 Pelvic and perineal pain; Z53.21 Procedure and treatment not carried out due to patient leaving prior to being seen by health care provider
CPT/HCPCS: 81001; 81025; 87086